=== PATIENT | female | born 1960 | race Caucasian/White ===

== ENCOUNTER 2017-03-05 14:21 | Emergency (ER) | payer OTHER ==
[~2017-03-05] VITALS: Ht 165.1 cm; Wt 77.1 kg
--- NOTE | 2017-03-05 15:35 | ED CARDIAC/CP/PALPITATIONS ---
History of Present Illness General Chief Complaint: General Adult Stated Complaint: PERIODIC NAUSEA, PALPITATIONS, OLSON X 2WEEKS Source: patient, old records Exam Limitations: no limitations Vital Signs & Intake/Output Vital Signs & Intake/Output Vital Signs Date Time Temp Pulse Resp B/P B/P Pulse O2 O2 Flow FiO2 Mean Ox Delivery Rate 03/05 1706 Room Air Room Air 03/05 1607 97.1 52 20 148/90 100 Room Air 03/05 1435 97.4 62 15 165/100 100 Room Air Room Air Allergies Coded Allergies: Penicillins (Severe, ANAPHYLAXIS 03/05/17) Reconcile Medications Alprazolam 0.25 MG TABLET 1 TAB PO QPMP PRN INSOMNIA (Reported) Estradiol (Estrace) 0.01 % CREAM.APPL 1 GM VG EOD HORMONAL SUPPLEMENT ( Reported) Levocetirizine Dihydrochloride 5 MG TABLET 1 TAB PO DAILY ALLERGIES (Reported ) Mometasone Furoate (Nasonex) 50 MCG SPRAY.PUMP 2 SPRAY NASB DAILY ALLERGIES ( Reported) Ondansetron (Zofran Odt) 4 MG TAB.RAPDIS 1 TAB SL TID PRN nausea Ospemifene (Osphena) 60 MG TABLET 1 TAB PO D UNK (Reported) Zolmitriptan (Zomig) 5 MG TABLET 1 TAB PO AD PRN MIGRAINES (Reported) Triage Note: PT TO ED FOR NAUSEA AND PALPITATIONS STARTED THIS MORNING. ALSO HAS A HEADACHE WHICH STARTED TODAY. PT'S BP 165/100. DENIES CHEST PAIN. NO ACUTE DISTRESS NOTED. Triage Nurses Notes Reviewed? yes Onset: Gradual Duration: week(s): (2), intermittent Timing: recent history Quality/Severity: mild, moderate, aching Radiation: no radiation Activities at Onset: none Associated Symptoms: PALPITATIONS HPI: 57-year-old female with history of migraines presents to ER for evaluation complaining of 2 week history of intermittent palpitations and headache. She denies fever chills chest pain shortness of breath. She's been taking medication for her sinuses without improvement she receives Botox injections for her migraines in the past. No recent fall or head trauma. She states she's been having her blood pressure checked at school systolic numbers have been in the 160s to 140s. She's never been diagnosed with high blood pressure before. She denies vision changes nausea vomiting abdominal pain. She is not taken anything for her symptoms are soccer for the symptoms until today. No dizziness lightheadedness no palpitations at this time (PAULINA RODRIGUEZ) Past History Travel History Traveled to [place] past 21 day No Medical History Any Pertinent Medical History? see below for history Neurological: MIGRAINES EENT: NONE Cardiovascular: NONE Respiratory: NONE Gastrointestinal: NONE Hepatic: NONE Renal: NONE Musculoskeletal: NONE Psychiatric: NONE Endocrine: NONE Blood Disorders: NONE Cancer(s): NONE BENDER MACHINE OPERATOR/Reproductive: NONE Surgical History Surgical History: non-contributory Psychosocial History What is your primary language [place] Tobacco Use: Never used ETOH Use: denies use Illicit Drug Use: denies illicit drug use Family History Hx Contributory? No (PAULINA RODRIGUEZ) Review of Systems Review of Systems Constitutional: Reports: see HPI. All Other Systems: Reviewed and Negative Comments Review of systems: See HPI, All other systems negative. Constitutional, no chills no fever, no malaise HEENT: No visual changes no sore throat no congestion, no ear pain Cardiovascular: No chest pain , no palpitation , no orthopnea Skin: no rashes, no change in skin Respiratory: No dyspnea no cough no sputum GI: No nausea no vomiting, no diarrhea, : No dysuria Muscle skeletal: No joint pain, no joint swelling, no back pain, no neck pain, Neurologic: No numbness no confusion, headache Psych: No stress no depression,. Heme/endocrine: No bruising no bleeding Immunology: No lymphadenopathy (PAULINA RODRIGUEZ) Physical Exam Physical Exam General Appearance: well developed/nourished, no apparent distress, alert, awake Cardiovascular: regular rate/rhythm Comments: Well-developed well-nourished patient in no apparent distress. HEENT: No papilledema Atraumatic, extraocular motion intact Neck: Supple, FROM Back: FROM Cardiovascular: Regular rate and rhythms no murmurs rubs or gallops, Respiratory: Chest nontender.There were no bony deformities, no asymmetry. No respiratory distress. Patient speaking in full complete sentences. Breath sounds clear to auscultation bilaterally: NO W/R/R Extremities: full range of motion Neuro: awake, alert, and oriented to person, place and time. There were no obvious focal neurologic abnormalities. Skin: Warm & dry;No appreciable rash on exposed skin Psych: Mood affect normal, normal memory normal judgment. Core Measures ACS in differential dx? Yes Severe Sepsis Present: No Septic Shock Present: No (PAULINA RODRIGUEZ) Progress Differential Diagnosis: ELECTROLYTE ABNORMALITY HYPERTENSION DEHYDRATION MIGRAINE SINUSITIS Plan of Care: Orders Procedure Date/time Status TROPONIN LEVEL 03/05 1604 Complete COMPREHENSIVE METABOLIC PANEL 03/05 1604 Complete CBC WITHOUT DIFFERENTIAL 03/05 1604 Complete EKG 03/05 1424 Active Laboratory Tests 03/05/17 1615: Anion Gap 9, Estimated GFR > 60, BUN/Creatinine Ratio 15.0, Glucose 95, Calcium 9.9, Total Bilirubin 0.9, AST 26, ALT 37, Alkaline Phosphatase 66, Troponin I < 0.01, Total Protein 7.8, Albumin 4.5, Globulin 3.3, Albumin/Globulin Ratio 1.4, CBC w Diff NO MAN DIFF REQ, RBC 4.83, MCV 91.3, MCH 31.4 H, RDW 13.1, MPV 8.4, Gran % 57.6, Lymphocytes % 32.4, Monocytes % 6.2, Eosinophils % 3.4, Basophils % 0.4, Absolute Granulocytes 3.9, Absolute Lymphocytes 2.2, Absolute Monocytes 0.4 , Absolute Eosinophils 0.2, Absolute Basophils 0, PUBS MCHC 34.3 Patient's blood pressure 148/90 repeat she is without any complaint at this time I discussed with the patient at length all of their results. I had an extensive conversation regarding need for close follow up with their primary care physician this week as well as return precautions. I answered all of their questions, they feel comfortable with the plan and follow-up care. I discussed with the patient/family the medications that they will receive. I gave them signs and symptoms that could indicate an adverse reaction. I have advised them to limit their activities until they can see how they respond to the medication. (PAULINA RODRIGUEZ) Initial ED EKG: normal intervals, normal p-waves, normal QRS complex, normal sinus rhythm (60) (PAULINA RODRIGUEZ) Departure Departure Time of Disposition: 1654 Disposition: HOME OR SELF CARE Condition: Stable Clinical Impression Primary Impression: Palpitations Referrals: WAN ANNE MD (PCP/Family) Additional Instructions: Follow-up with her primary care physician this week. Zofran if needed for nausea. As discussed purchase a [id number] blood pressure cuff and check your blood pressure at home once in the morning once at night and record these numbers. Bring these numbers and recordings with you to your primary care physician this week Tylenol Motrin for headaches return to ER anytime sooner with any concerns Your prescription was sent to [facility] Departure Forms: Customer Survey General Discharge Information Prescriptions: Current Visit Scripts Ondansetron (Zofran Odt) 1 TAB SL TID PRN nausea #10 TAB (PAULINA RODRIGUEZ) PA/MAIL AGENT Co-Sign Statement Statement: ED Attending supervision documentation- [] I saw and evaluated the patient. I have also reviewed all the pertinent lab results and diagnostic results. I agree with the findings and the plan of care as documented in the PA's/MAIL AGENT's documentation. [X] I have reviewed the ED Record and agree with the PA's/MAIL AGENT's documentation. [] Additions or exceptions (if any) to the PAs/MAIL AGENT's note and plan are summarized below: [] (ISSA LAWRENCE,GRAEME Masterson) Critical Care Note Critical Care Note Critical Care Time: non-applicable (PAULINA RODRIGUEZ)
[2017-03-05 16:07] VITALS: BP 148/90
[2017-03-05] MEDS ORDERED: LEVOCETIRIZINE D5 M1 PO (16:15)
[2017-03-05] MEDS ORDERED: OSPHENA60 M1 PO (16:15)
[2017-03-05] MEDS ORDERED: ALPRAZOLAM0.25 M1 PO (16:16)
[2017-03-05] MEDS ORDERED: ESTRACE42.5 GM VG (16:17)
[2017-03-05] MEDS ORDERED: ZOMIG5 M2 PO (16:17)
[2017-03-05] MEDS ORDERED: NASONEX17 GM NASB (16:17)
[2017-03-05 16:25] LABS: ABSOLUTE BASOPHIL COUNT 0 /CUMM (0.0-0.2); ABSOLUTE EOSINOPHIL COUNT 0.2 /CUMM (0.0-0.7); ABSOLUTE GRANULOCYTE CT 3.9 /CUMM (1.4-6.5); ABSOLUTE LYMPH COUNT 2.2 /CUMM (1.2-3.4); ABSOLUTE MONOCYTE COUNT 0.4 /CUMM (0.10-0.60); BASOPHIL % 0.4 % (0.0-2.0); EOSINOPHIL % 3.4 % (0-5); GRANULOCYTE % 57.6 % (42.2-75.2); HEMATOCRIT 44.1 % (37-47); MEAN CORPUSCULAR HGB 31.4 PG (27.0-31.0); MEAN CORPUSCULAR HGB CONC 34.3 G/DL (33.0-37.0); MEAN CORPUSCULAR VOLUME 91.3 FL (81.0-99.0); MEAN PLATELET VOLUME 8.4 FL (7.4-10.4); PLATELET COUNT 338 /CUMM (130-400); RBC DISTRIBUTION WIDTH 13.1 % (11.5-14.5); RED BLOOD CELL CT 4.83 /CUMM (4.20-5.40); WHITE BLOOD CELL COUNT 6.8 /CUMM (4.8-10.8)
[2017-03-05] MEDS ORDERED: ZOFRAN ODT4 M1 SL (16:56)
== END 2017-03-05 17:08 ==
LOC: ERH 14:21
PROVIDERS: Physician Assistant Medical
DX: R00.2 Palpitations (principal); R51 Headache; R11.0 Nausea
CPT/HCPCS: 93005; 93010